=== PATIENT | female | born 2000 | race African-American/Black ===

== ENCOUNTER 2022-09-01 01:32 | Emergency (ER) | payer OTHER ==
[2022-09-01] MEDS ORDERED: Acetaminophen 500 MG TAB ONE (02:59)
[2022-09-01] MEDS ORDERED: Ketorolac Tromethamine 30 MG/ML VIAL ONE (03:02)
== END 2022-09-01 04:52 | disposition home or self-care (01) ==
LOC: CSHERS 01:32
DX: S89.91XA Unspecified injury of right lower leg, initial encounter (principal); W23.0XXA Caught, crushed, jammed, or pinched between moving objects, initial encounter
CPT/HCPCS: 96372; J1885